=== PATIENT | male | born 1980 | race African-American/Black ===

== ENCOUNTER 2020-03-19 07:55 | Emergency (ER) | payer SELFPAY ==
[~2020-03-19] VITALS: Ht 165.1 cm; Wt 79.9 kg
[2020-03-19] MEDS ORDERED: IV NORMAL SALINE 1,000ML 1,000 ML IV ONE (08:15)
--- NOTE | 2020-03-19 08:29 | PHYS DOC ---
Past History Past Medical History: No Pertinent History Past Surgical History: Other General Adult EDM: Chief Complaint: DIZZY/LIGHT HEADED HPI: HPI: 40-year-old homeless male past medical history significant for hypertension (medication noncompliance for 5 years) and tobacco dependence, presents the ED with complaints of feeling sick for the past 3 to 4 days with associated loose watery stools, shortness of air, fever, fatigue and a gradual onset frontal headache. Patient is concerned he has Covid. Has no underlying lung disease. No history of clotting disorders. States he recently travels often to the hospital. Review of Systems: Review of Systems: Constitutional: Denies chills Eyes: Denies change in visual acuity HENT: Denies nasal congestion or sore throat Respiratory: Denies cough or hemoptysis Cardiovascular: Denies chest pain or edema GI: Denies abdominal pain, nausea, vomiting, bloody stools or diarrhea : Denies dysuria or hematuria Musculoskeletal: Denies back pain or joint pain Integument: Denies rash Neurologic: Denies neck stiffness, focal weakness or sensory changes Endocrine: Denies polyuria or polydipsia Lymphatic: Denies swollen glands Psychiatric: Denies depression or anxiety Current Medications: Current Meds: Current Medications Medications (Trade) Dose Ordered Sig/Capo Start Time Stop Time Status Last Admin Dose Admin Sodium Chloride 1,000 ml @ 1,000 mls/hr 1X ONCE 03/19/20 08:15 03/19/20 09:14 Allergies: Allergies: Allergies Coded Allergies Type Severity Reaction Last Updated Verified No Known Drug Allergies 11/26/13 No Physical Exam: PE: Constitutional: Well developed, well nourished, no acute distress, non-toxic appearance. HENT: Normocephalic, atraumatic, dry mucous membranes Eyes: EOMI, conjunctiva normal, no discharge. Neck: Normal range of motion, supple, Cardiovascular: S1/2 present, regular rhythm, tachycardic Lungs & Thorax: Speaking in full sentences, bilateral equal chest rise, no tachypnea or increased work of breathing, 97% ra Abdomen: soft, no tenderness, Skin: Warm, dry, no erythema, no rash. [] Back: No tenderness, no CVA tenderness. [] Extremities: No tenderness, no cyanosis, no edema Neurologic: Alert and oriented X 3, normal motor function, normal sensory function, no focal deficits noted. [] Psychologic: Affect normal, judgement normal, mood normal. [] EKG: EKG: Sinus tachycardia at 118 bpm, left axis deviation, QTC 448, no T wave inversions, no ST elevations or ST depressions, enlarged P wave (p-mitrale/LAE?) Radiology/Procedures: Radiology/Procedures: IMAGING REPORT Signed PATIENT: KOBE WISE LACCOUNT: [id number] : 1980 LOCATION: ER AGE: 40 SEX: M EXAM STATUS: REG ER ORD. PHYSICIAN: MIL PINTO DO REASON: soa, r/o pe PROCEDURE: CT ANGIOGRAPHY CHEST CT ANGIOGRAPHY CHEST INDICATION: soa, r/o pe Comparison: Chest radiograph 03/19/2020. TECHNIQUE: Following the uneventful administration of intravenous contrast, 100 cc Omnipaque 350, axial CT sections were obtained through the lungs and upper abdomen. Multiplanar reconstructions and MIP images were obtained. PQRS compliance statement: One or more of the following individualized dose reduction techniques were utilized for this examination: 1. Automated exposure control 2. Adjustment of the mA and/or kV according to patient size 3. Use of iterative reconstruction technique FINDINGS: Pulmonary arteries: No evidence of pulmonary thromboembolic disease. Lungs and Airways: Mild groundglass opacities in the mid and lower lungs. Couple of indeterminate pulmonary nodules with claims service representative nodule as follows: Middle lobe 4 mm nodule (series 5 image 76). No abnormality of the central airways. Pleura: The pleural spaces are normal. Heart and Mediastinum: The visualized thyroid is normal in size and attenuation. No axillary or supraclavicular lymphadenopathy. No mediastinal, hilar or retrocrural lymphadenopathy. The heart and pericardium are within normal limits. The great vessels of the thorax are normal. Abdomen: Limited images through the upper abdomen show no abnormality of the visualized organs. Bones and Soft Tissues: The visualized bones and chest wall soft tissues are within normal limits. IMPRESSION: 1. No evidence of pulmonary thromboembolic disease. 2. Mild groundglass opacities in the mid and lower lungs which may represent subsegmental atelectasis or potentially an infectious/inflammatory process. 3. There are a couple of tiny indeterminate pulmonary nodules. Consider optional 12 month follow-up chest CT if patient has risk factors (history of smoking, history of malignancy, etc.). Electronically signed by: Juan Jose Richmond MD (03/19/2020 11:12 AM) [id number] DICTATED AND SIGNED BY: JUAN JOSE RICHMOND MD DATE: 03/19/20 111 CC: PCP,[place]; MIL PINTO DO ~ Heart Score: Risk Factors: Risk Factors: DM, Current or recent (<one month) smoker, HTN, HLP, family history of CAD, obesity. Risk Scores: Score 0 - 3: 2.5% MACE over next 6 weeks - Discharge Home Score 4 - 6: 20.3% MACE over next 6 weeks - Admit for Clinical Observation Score 7 - 10: 72.7% MACE over next 6 weeks - Early Invasive Strategies Course & Med Decision Making: Course & Med Decision Making Pertinent Labs and Imaging studies reviewed. (See chart for details) COVID-19 CRITERIA: The patient was evaluated during the global COVID-19 pandemic, and that diagnosis was suspected/considered upon their initial presentation. Their evaluation, treatment and testing was consistent with current guidelines for patients who present with complaints or symptoms that may be related to COVID-19. Concern for Covid in the setting of nausea and dehydration with mild headache- migraine cocktail given in ED. Patient is nontoxic-appearing with no signs of meningitis or confusion. Chest pain present for amphetamines or meth and marijuana. Influenza test negative. Covid test pending. CT angio showed no pulmonary emboli. Groundglass opacities on CT, will prescribe azithromycin. Strict ED return precautions were given for chest pain, increased work of breathing, strokelike symptoms or neurologic deficits. Encouraged urgent outpatient follow-up with PMD. Life-threatening processes were considered but are low suspicion at this time, given history and physical exam. Pt was educated on all prescription medications and adverse effects. All patient's questions were answered and pt was stable at time of discharge. Life/limb-threatening differential includes but is not limited to, ACS, dysrhythmia, pneumothorax or hemothorax, pulmonary embolus, pneumonia, bronchoconstriction, pulmonary edema, angioedema, epiglottitis, tracheitis, Abhishek's angina, RPA/FENCE BUILDER, anaphylaxis, angioedema, cardiac tamponade or murmurs, pericarditis, myocarditis, poisoning or toxicity, sepsis or autoimmune/neurologic disease, meningitis, encephalitis, intracranial hemorrhage, obstructive hydrocephaly, CVA, carbon oxide poisoning, cerebral or cavernous venous thrombosis, hypertensive emergency, preeclampsia, giant cell arteritis, glaucoma, carotid or vertebral artery dissection, superior vena cava syndrome, infection, space-occupying lesions I spoken with the patient and her caregivers. I explained the patient's condition, diagnoses and treatment plan based on the information available to me at this time. I have answered the patient and her caregiver's questions and addressed any concerns. The patient and her caregivers have a good understanding of patient's diagnosis, condition and treatment plan as can be expected at this point. Vital signs have been stable. Patient's condition is stable and appropriate for discharge from the emergency department. Patient will pursue further outpatient evaluation with primary care physician or other designated or consulting physician as outlined in the discharge instructions. The patient and/or caregivers are agreeable to this plan of care and follow-up instructions have been explained in detail. The patient and/or caregivers have received these instructions in written form and have expressed an understanding of the discharge instructions. The patient and/or caregivers are aware that any significant change of condition or worsening of symptoms should prompt immediate return to this or the closest emergency department or call to 1. Jailene Disclaimer: Jailene Disclaimer: This electronic medical record was generated, in whole or in part, using a voice recognition dictation system. Departure Departure: Impression: Primary Impression: Person under investigation for COVID-19 Additional Impressions: Encounter for laboratory testing for COVID-19 virus Nausea and vomiting Headache Disposition: 01 DC HOME SELF CARE/HOMELESS Condition: STABLE Referrals: PCP,NO (PCP) FOLLOW UP WITH FAMILY MEDICINE: Family Medicine Address: [address] [place] [id number] Patient Instructions: Upper Respiratory Infection, Adult Additional Instructions: You have been tested for or diagnosed with COVID-19. It is an infection caused by a new type of coronavirus. COVID-19 will cause cold-like or mild flu symptoms in most. It can cause more severe symptoms like problems breathing in some. There is no treatment for COVID-19. The body will clear the infection over time. Self-care will help to ease discomfort. Steps to Take: Self-Care Rest as needed. Healthy habits may help you feel better. Steps include: Choose healthy foods including fruits and vegetables. Drink water throughout the day. Get plenty of sleep each night. If you smoke, try to quit. It may ease breathing. Avoid alcohol. Keep Others Healthy The virus can spread to others. Droplets are released every time you sneeze or cough. The droplets can get into the mouth, nose, or eyes of people near you and lead to infection. To lower the chances of spreading COVID-19 to others: Stay at home until your doctor has said it is safe to leave. If you tested positive this will mean staying isolated until both of the following are true: At least 7 days have passed since the start of illness. You are free of fever for at least 72 hours without the use of medicine. During this time: - Avoid public areas, events, or transportation. Do not return to work or school until your doctor has said it is safe to do so. - Call ahead if you need to go to a medical center. Let them know you may have COVID-19. It will help them guide you where to go. They may also ask you to wear a facemask when you come to the office. - If you call for emergency medical services, let them know you may have COVID- 19. While at home: - Try to avoid close contact with others. Stay about 6 feet away. - If possible, spend most of your time in a separate room from others. - Use a face mask if you will be in close contact with others such as sharing a room or vehicle. - Have someone wipe down common surfaces in the home. Use household marketing account executive every day on areas like doorknobs, counters, or sinks. - Cough or sneeze into a tissue. Throw the tissue away right after use. If a tissue is not available, cough or sneeze into your elbow. - Wash your hands often. Wash them after sneezing or coughing. Use soap and water and wash for at least 20 seconds. Alcohol based hand pool cleaner can be used if soap and water is not available. - Do not prepare food for others. Avoid sharing personal items like forks, spoons, or toothbrushes. - Avoid close contact with pets while you are sick. There is no evidence of the virus passing to pets. This is a safety step until more is known about this virus. Isolation can be frustrating. Social interaction can help. Keep in touch with friends and family through phone and tech options. You can still interact with others in your home, just keep a safe distance of about 6 feet. Follow-up: Your doctors office will check in with you to see if there are any changes in your health. You may be asked to keep track of symptoms to share with them. They will also let you know when you are clear to be in public again. Problems to Look Out For: Contact your doctor if your recovery is not going as you expect. Get emergency care if you have problems such as: - Trouble breathing - Nonstop chest pain or pressure - Changes in awareness, confusion, or problems waking - Lips or face have bluish color - Worsening of symptoms If you think you have an emergency, call for emergency medical services right away. As taken from [facility] Ondansetron Hcl (ZOFRAN) 4 Mg Tablet 1 TAB PO PRN Q6HRS PRN for NAUSEA, #15 TAB Prov: MIL PINTO DO 03/19/20 IML PINTO DO Mar 19, 2020 08:29
[2020-03-19 08:53] LABS: BASO % 1 % (0-3); EOS % 0 % (0-3); HEMATOCRIT 47.2 % (39.0-53.0); HEMOGLOBIN 15.1 g/dL (13.0-17.5); LYMPH # 0.6 x10^3/uL (1.0-4.8); LYMPH % 14 % (24-48); MEAN CORPUSCULAR HEMOGLOBIN 26 pg (25-35); MEAN CORPUSCULAR HGB CONC 32 g/dL (31-37); MEAN CORPUSCULAR VOLUME 80 fL (79-100); MONO # 0.4 x10^3/uL (0.0-1.1); MONO % 8 % (0-9); NEUT # 3.4 x10^3uL (1.8-7.7); NEUT % 77 % (31-73); PLATELET COUNT 157 x10^3/uL (140-400); RED BLOOD COUNT 5.88 x10^6/uL (4.30-5.70); RED CELL DISTRIBUTION WIDTH 13.7 % (11.5-14.5); WHITE BLOOD COUNT 4.5 x10^3/uL (4.0-11.0)
[2020-03-19 08:59] LABS: CALCIUM 8.7 mg/dL (8.5-10.1); CREATININE 1.2 mg/dL (0.7-1.3); GFR 80.3; POTASSIUM 3.6 mmol/L (3.5-5.1)
[2020-03-19 09:05] LABS: ALBUMIN 3.6 g/dL (3.4-5.0); ALBUMIN/GLOBULIN RATIO 0.9 (1.0-1.7); TOTAL BILIRUBIN 0.6 mg/dL (0.2-1.0); TOTAL PROTEIN 7.5 g/dL (6.4-8.2)
[2020-03-19 09:10] LABS: INFLUENZA A PATIENT NEGATIVE (NEGATIVE)
[2020-03-19 09:11] LABS: INFLUENZA B PATIENT NEGATIVE (NEGATIVE)
--- NOTE | 2020-03-19 09:14 | RAD ---
Single view of the chest. 03/19/2020 8:12 AM Indication: Shortness of breath: Comparison: None Findings: There is no focal consolidation. There is no pleural effusion or pneumothorax. The cardiomediastinal silhouette and pulmonary vasculature are within normal limits. No acute osseous abnormalities are seen. Impression: No evidence of acute cardiopulmonary process. Electronically signed by: Aaron Moreno MD (03/19/2020 9:11 AM) [id number]
[2020-03-19] MEDS ORDERED: IOHEXOL 350 MG/ML 100 ML VIAL. IV ONE (10:30)
--- NOTE | 2020-03-19 11:15 | RAD ---
CT ANGIOGRAPHY CHEST INDICATION: soa, r/o pe Comparison: Chest radiograph 03/19/2020. TECHNIQUE: Following the uneventful administration of intravenous contrast, 100 cc Omnipaque 350, axial CT sections were obtained through the lungs and upper abdomen. Multiplanar reconstructions and MIP images were obtained. PQRS compliance statement: One or more of the following individualized dose reduction techniques were utilized for this examination: 1. Automated exposure control 2. Adjustment of the mA and/or kV according to patient size 3. Use of iterative reconstruction technique FINDINGS: Pulmonary arteries: No evidence of pulmonary thromboembolic disease. Lungs and Airways: Mild groundglass opacities in the mid and lower lungs. Couple of indeterminate pulmonary nodules with compliance representative dealer nodule as follows: Middle lobe 4 mm nodule (series 5 image 76). No abnormality of the central airways. Pleura: The pleural spaces are normal. Heart and Mediastinum: The visualized thyroid is normal in size and attenuation. No axillary or supraclavicular lymphadenopathy. No mediastinal, hilar or retrocrural lymphadenopathy. The heart and pericardium are within normal limits. The great vessels of the thorax are normal. Abdomen: Limited images through the upper abdomen show no abnormality of the visualized organs. Bones and Soft Tissues: The visualized bones and chest wall soft tissues are within normal limits. IMPRESSION: 1. No evidence of pulmonary thromboembolic disease. 2. Mild groundglass opacities in the mid and lower lungs which may represent subsegmental atelectasis or potentially an infectious/inflammatory process. 3. There are a couple of tiny indeterminate pulmonary nodules. Consider optional 12 month follow-up chest CT if patient has risk factors (history of smoking, history of malignancy, etc.). Electronically signed by: Srinivas Aceves MD (03/19/2020 11:12 AM) [id number]
[2020-03-19 11:29] LABS: BARBITURATES NEG (NEG); BENZODIAZEPINES NEG (NEG); CANNABINOIDS POS (NEG); COCAINE NEG (NEG); METHADONE NEG (NEG); OPIATES NEG (NEG); PHENCYCLIDINE NEG (NEG)
[2020-03-19 11:32] LABS: AMPHETAMINE/METHAMPHETAMINE POS (NEG)
[2020-03-19] MEDS ORDERED: PROCHLORPERAZINE 10 MG/2 ML VIAL. IV ONE (12:00)
[2020-03-19] MEDS ORDERED: DEXAMETHASONE SOD PHOS 10 MG/ML VIAL. IV ONE (12:00)
[2020-03-19] MEDS ORDERED: diphenhydrAMINE 50 MG/ML VIAL IVP ONE (12:00)
--- NOTE | 2020-03-19 12:02 | EKG ---
[address] [address] Test Date: 2020-03-19 Test Time: 08:24:26 Pat Name: KOBE WISE Department: Room: Gender: M Cloak Room Attendant: KIMBERLY : 1980 Requested By: MIL PINTO Order Number: [id number] Reading MD: Measurements Intervals [place] Rate: 118 P: 64 SC: 158 QRS: -39 QRSD: 82 T: 53 QT: 318 QTc: 448 Interpretive Statements SINUS TACHYCARDIA ABNORMAL LEFT AXIS DEVIATION R-S TRANSITION ZONE IN V LEADS DISPLACED TO THE LEFT LEFT ANTERIOR FASCICULAR BLOCK INCOMPLETE RIGHT BUNDLE BRANCH BLOCK ABNORMAL ECG RI6.02 No previous ECG available for comparison
[2020-03-19] MEDS ORDERED: ONDA4TAB7 PO (12:03)
[2020-03-19 12:38] VITALS: BP 152/97
== END 2020-03-19 12:59 | disposition home or self-care (01) ==
LOC: ER 07:55
DX: U07.1 COVID-19 (principal); R11.2 Nausea with vomiting, unspecified; R51.9 Headache, unspecified
CPT/HCPCS: 36415; 71045; 71275; 80053; 80307; 82550; 84484; 85025; 85379; 87804; 93005; 96361; 96374; 96375; 99285; C9803; J0780; J1100; J1200; J7030; Q9967; U0003